=== PATIENT | male | born 2000 | race Hispanic/Latino ===

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

== ENCOUNTER 2020-03-04 10:29 | Emergency (ER) | payer MEDICAID, OTHER | END 2020-03-04 13:48 | disposition home or self-care (01) | LOC: EDH 10:29 | DX: S00.83XA Contusion of other part of head, initial encounter (principal); Z72.0 Tobacco use; Y08.89XA Assault by other specified means, initial encounter; Y93.89 Activity, other specified; Y92.89 Other specified places as the place of occurrence of the external cause; Y99.8 Other external cause status | CPT/HCPCS: 70450; 70486; 72125 ==

== ENCOUNTER 2022-08-19 10:05 | Emergency (ER) | payer OTHER ==
[~2022-08-19] VITALS: Ht 172.7 cm; Wt 61.2 kg
[2022-08-19] MEDS ORDERED: DIPHENHYDRAMINE HCL 25 MG CAPSULE PO ONE (12:00)
[2022-08-19] MEDS ORDERED: DIPH-1242 PO (12:02)
[2022-08-19] MEDS ORDERED: HYDR28.32 TP (12:02)
[2022-08-19 12:41] VITALS: BP 132/74
== END 2022-08-19 12:41 | disposition home or self-care (01) ==
LOC: EDH 10:05
DX: L29.9 Pruritus, unspecified (principal); W57.XXXA Bitten or stung by nonvenomous insect and other nonvenomous arthropods, initial encounter; Y93.89 Activity, other specified; Y92.89 Other specified places as the place of occurrence of the external cause; Y99.8 Other external cause status
CPT/HCPCS: 99282; Q0163

== ENCOUNTER 2023-02-08 00:26 | Emergency (ER) | payer OTHER ==
[~2023-02-08] VITALS: Ht 170.2 cm; Wt 63.5 kg
[~2023-02-08 00:26] MED LIST: DIPH-1242 PO; HYDR28.32 TP
[2023-02-08 00:28] VITALS: BP 141/71; PULSE 77; RESP 18
[2023-02-08] MEDS ORDERED: DIPHENHYDRAMINE HCL 25 MG CAPSULE PO ONE (02:30)
[2023-02-08] MEDS ORDERED: CETI10CA5 PO (02:55)
[2023-02-08] MEDS ORDERED: EPIN0.3P3 IJ (02:55)
== END 2023-02-08 03:01 | disposition left against medical advice (07) ==
LOC: EDH 00:26
DX: T78.49XA Other allergy, initial encounter (principal); Z79.899 Other long term (current) drug therapy; X58.XXXA Exposure to other specified factors, initial encounter
CPT/HCPCS: 99282